=== PATIENT | male | born 1955 | race Caucasian/White ===

== ENCOUNTER → 2017-07-02 | Outpatient (CLI) | payer OTHER ==
[2017-07-02 13:00] LABS: ALT/SGPT 23 U/L (12-78); AST/SGOT 16 U/L (15-37); BLOOD UREA NITROGEN 21 mg/dl (7-18); BUN/CREATININE RATIO 22.1 (10-20); CALCIUM 8.7 mg/dl (8.5-10.1); CARBON DIOXIDE 30 mmol/L (21-32); CHLORIDE 104 mmol/L (98-107); CREATININE 0.94 mg/dl (0.60-1.40); GLUCOSE,FASTING 167 mg/dl (70-99); POTASSIUM 4.1 mmol/L (3.5-5.1); SODIUM 137 mmol/L (136-145)
[2017-07-02 13:03] LABS: ALB/GLOB RATIO 0.9 (0.9-2); ALKALINE PHOSPHATASE 80 U/L (45-117); CHOLESTEROL 207 mg/dl (0-200); CHOLESTEROL/HDL RATIO 6.7; HDL CHOLESTEROL 31 mg/dl; LDL CHOLESTEROL CALCULATED 142 mg/dl; TRIGLYCERIDES 168 mg/dl (0-150); VERY LOW DENSITY LIPOPROT CALC 34 mg/dl
== END | disposition home or self-care (01) ==
LOC: C.LABPBG 08:44
PROVIDERS: ATTEND Physician Assistant
DX: Z00.00 Encounter for general adult medical examination without abnormal findings (principal)

== ENCOUNTER → 2017-07-09 | Outpatient (CLI) | payer OTHER ==
[~2017-07-09] MED LIST: ALLO300T2 PO; CITA20TA9 PO; ESOM20CA PO; GABA-113 PO; METFTAB PO; MULT-190 PO; RIVA1TAB4 PO; SYMIN160 INH
[2017-07-09 13:10] LABS: HEMOGLOBIN A1C 7.1 % (4.5-5.6)
== END | disposition home or self-care (01) ==
LOC: C.LABPBG 08:59
PROVIDERS: ATTEND Physician Assistant
DX: R73.01 Impaired fasting glucose (principal)

== ENCOUNTER 2017-07-17 09:39 | Emergency (ER) | payer OTHER ==
[~2017-07-17] VITALS: Ht 177.8 cm; Wt 142.0 kg
[2017-07-17 09:42] VITALS: TEMP 36.3; Ht 177.8 cm; Wt 142.0 kg
[2017-07-17] MEDS ORDERED: METFTAB PO (10:49)
[2017-07-17] MEDS ORDERED: MULT-190 PO (10:49)
[2017-07-17] MEDS ORDERED: ALLO300T2 PO (10:49)
[2017-07-17] MEDS ORDERED: SYMIN160 INH (10:49)
[2017-07-17] MEDS ORDERED: CITA20TA9 PO (10:49)
[2017-07-17] MEDS ORDERED: ESOM20CA PO (10:49)
[2017-07-17] MEDS ORDERED: GABA-113 PO (10:49)
[2017-07-17] MEDS ORDERED: RIVA1TAB4 PO (10:49)
--- NOTE | 2017-07-17 10:55 | DIAGNOSTIC IMAGING REPORT ---
RIGHT ANKLE 3 VIEWS CLINICAL HISTORY: Recent fall. Foot and ankle pain. FINDINGS: 3 views of the right ankle are obtained. No prior studies are available for comparison at the time of dictation. The skeletal structures are well mineralized. No acute fracture is seen. There is a chronic appearing avulsion fracture of the medial malleolus which appears well-corticated. The ankle mortise is intact. Chronic posttraumatic deformity is suggested involving the posterior tibial plafonds. There are large dorsal and plantar calcaneal enthesophytes. A large os trigonum is noted. A joint effusion is observed. There is calcification identified along the course of the Achilles tendon and the plantar fascia. Soft tissue swelling is present around the ankle. IMPRESSION: 1. Soft tissue swelling with no acute fracture clearly identified. 2. 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 3. Degenerative change as above. Electronically signed by: Hank Arora M.D. 07/17/2017 10:54 AM Dictated Date/Time: 07/17/2017 10:52 AM
[2017-07-17 11:00] VITALS: BP 122/73; PULSE 55; O2SAT 98
--- NOTE | 2017-07-17 11:02 | DIAGNOSTIC IMAGING REPORT ---
R FOOT MIN 3 VIEWS ROUTINE HISTORY: 61 years-old Male same acute right foot and ankle pain status post fall COMPARISON: Right ankle radiographs of same day TECHNIQUE: 3 views of the right foot FINDINGS: Mild first MTP joint osteoarthritis with mild associated soft tissue swelling. No acute fracture or subluxation identified. Dystrophic appearing calcifications are noted within the distribution of the plantar fascia and mid to distal Achilles tendon with moderate sized plantar enthesophyte about the calcaneus. Chronic posttraumatic deformity involves the posterior tibial plafond and medial malleolus, better described on comparison ankle radiograph. IMPRESSION: 1. No acute fracture or subluxation. 2. Mild degenerative changes of the first MTP joint. 3. Dystrophic calcifications in the region of the plantar fascia and mid to distal Achilles tendon suggest sequela of chronic plantar fasciitis and Achilles tendinosis respectively. 4. 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 The above report was generated using voice recognition software. It may contain grammatical, syntax or spelling errors. Electronically signed by: Yohannes Bonilla M.D. 07/17/2017 11:01 AM Dictated Date/Time: 07/17/2017 10:58 AM
--- NOTE | 2017-07-18 21:21 | EMERGENCY ROOM VISIT NOTE ---
ED Visit Note First contact with patient: 09:54 Chief Complaint: Right ankle pain. History of Present Illness: Mr. Moon is a 61-year-old white male who ambulates into the ED complaining of lateral right ankle pain. Patient reports about 10 hours ago he slipped and fell on ice and twisted his right ankle. He reports before the fall he was not experiencing any lightheaded this or dizziness, the time of the fall he did not strike his head or have a loss of consciousness. He reports since the fall he has right ankle pain over the lateral malleolus area that is radiating down into the foot. He describes his pain as a achy sensation. He rates his discomfort 4/10. His pain is nonradiating. His pain worsens with ambulation, inversion and palpation of the lateral malleolus. He has not identified any alleviating factors related to the pain. He has not taken any medications for pain prior to arrival at the hospital. He denies any other symptoms including signs of head injury, neck pain, back pain, right hip or knee pain, right leg weakness/numbness/tingling. Additionally he denies any previous significant injuries or surgeries to the right lower extremity. Review of Systems: As noted above in history of present illness. At least body systems were reviewed and found to be negative as noted above. Past Medical History: Pulmonary embolism. Current Medications: Medications Dose Route/Sig Max Daily Dose Days Date Category Symbicort 160/4.5 Inhaler (Budesonide/Formoterol Fumarate) Aero 2 Puffs INH BID 07/17/17 Reported Xarelto (Rivaroxaban) 20 Mg Tab Unknown Dose PO DAILY 07/17/17 Reported Ocuvite Preservision (Multivitamins/Minerals) 1 Tab Tab 2 Tab PO DAILY 07/17/17 Reported Nexium (Esomeprazole Magnesium) 20 Mg Capcr Unknown Dose PO DAILY 07/17/17 Reported Glucophage Ext Rel (Metformin HCl) 500 Mg Tab 500 Mg PO DAILY 07/17/17 Reported Neurontin (Gabapentin) 300 Mg Cap 300 Mg PO BID 07/17/17 Reported Celexa (Citalopram Hydrobromide) 20 Mg Tab 75 Mg PO DAILY 07/17/17 Reported Zyloprim (Allopurinol) 300 Mg Tab 300 Mg PO DAILY 07/17/17 Reported Allergies to Medications: Patient denies. Social History: Patient is not employed; he feels safe in his home environment; he denies tobacco and alcohol use. Physical Examination: Vital Signs: Date Time Temp Pulse Resp B/P (MAP) Pulse Ox O2 Delivery O2 Flow Rate FiO2 07/17/17 11:00 55 18 122/73 98 Room Air 07/17/17 09:42 36.3 58 20 137/80 97 Room Air GENERAL: 61-year-old male in mild distress due to pain, nontoxic-appearing, afebrile and hemodynamically stable. NEUROLOGICAL: Awake, alert and oriented to person, place and time. Answering questions appropriately and following commands. Normal gait. SKIN: Warm, dry and pink. No soft tissue trauma noted. RIGHT LOWER EXTREMITY: No gross bony deformity. No shortening or malrotation. No tenderness in the hip, knee, lower leg. Tenderness over the lateral malleolus and the ligamentous structures anterior inferior to the malleolus. There is swelling but no bony deformity, bony crepitus or ecchymosis. No laxity of the ligamentous structures of the ankle. There is also tenderness over the fourth and fifth metacarpal without bony deformity, bony crepitus, swelling or ecchymosis. Throughout the foot the skin was warm and pink and capillary refill is brisk. He is able to distinguish light sensations through all Reba tones of the foot. ED Course: Patient is assessed as noted above. Patient's medication list was reviewed. Patient was offered pain medication and refused. Right Ankle X-Rays: Was read by myself and read by the radiologist showing no acute fractures or dislocations. There was some soft tissue swelling. Chronic posttraumatic deformity involving the posterior tibial plafond and medial malleolus consistent with an avulsion fracture. Right Foot X-Rays: Was read by myself and the radiologist and shows no acute fractures or subluxations. Radiologist does note mild degenerative changes of the first MTP joint, calcifications in the region of the plantar fascia and distal Achilles tendon. Patient was placed in a walking boot. Patient was educated about today's findings and instructed on his treatment plan ; he verbalized understanding and agreement with this plan. Clinical Impression: Right ankle and foot pain. Status post fall. Disposition: Patient discharged home in stable condition accompanied by family member; prior to departure he was reassessed and subjectively reported he was feeling better and rated his discomfort 3/10. Plan: Comfort measures including rest, ice, elevation and alternating ibuprofen and acetaminophen were discussed with the patient. Patient was placed in a walking boot and instructed on its use. Patient was encouraged to follow-up with orthopedics if no better in 7 days. Patient was encouraged return ED for worsening pain, uncontrolled swelling, foot weakness/numbness/tingling or any new/concerning symptoms.
== END 2017-07-17 11:57 | disposition home or self-care (01) ==
LOC: C.EDB 09:42
DX: M25.571 Pain in right ankle and joints of right foot (principal); W00.0XXA Fall on same level due to ice and snow, initial encounter; Z86.718 Personal history of other venous thrombosis and embolism; Z79.51 Long term (current) use of inhaled steroids; Z79.01 Long term (current) use of anticoagulants; Z79.84 Long term (current) use of oral hypoglycemic drugs

== ENCOUNTER → 2017-09-02 | Outpatient (CLI) | payer OTHER | END | disposition home or self-care (01) | LOC: C.LABPBG 09:47 | PROVIDERS: ATTEND Internal Medicine Endocrinology, Diabetes & Metabolism | DX: E11.9 Type 2 diabetes mellitus without complications (principal); E66.01 Morbid (severe) obesity due to excess calories; Z68.41 Body mass index [BMI] 40.0-44.9, adult ==